=== PATIENT | female | born 1990 ===

== ENCOUNTER 2016-12-02 07:23 | Inpatient (IN) | payer OTHER ==
[~2016-12-02] VITALS: Ht 160 cm; Wt 105.0 kg
[2016-12-02] MEDS ORDERED: ACET50TA PO (07:41)
[2016-12-02] MEDS ORDERED: PRENTAB9 PO (07:41)
[2016-12-02 07:45] VITALS: BP 139/87
--- NOTE | 2016-12-02 09:54 | IPNPDOC ---
Text Note Date of Service The patient was seen on 12/02/16. NOTE [id number] @ 0945 26 yo @ 36+6 by 1st trimester US. Presented to L&D triage with c/o DFM. Denies LOF, VB and CTXs. S: States she is comfortable, but is concerned about the change in her babes movement. States she woke up @ 0200 this am d/t babe moving and it kept her awake all night. This am around 0500 she noted that the babe stopped moving and did not move for 2 hours. Since being on the monitor here in triage she has noted FM. O: VS- WNL, afebrile FHR- BL-150, moderate variability, + accels, intermittent late decels CTX- irregular CTXs, Q 1-5 min, lasting < 60 seconds, resting tone palpated as soft, CTX are not palpable A: 26 yo @ 36+6 with a CAT II FHR tracing and CTXs. P: Prolonged monitoring, IV with LR bolus, Reassess in [address] Stubbs-reviewed FHR tracing. Agrees with above plan of care. WILLARD ADORNO CNM Dec 02, 2016 09:54
[2016-12-02] MEDS ORDERED: LR 1,000 ML IV ONE (10:00)
[2016-12-02] MEDS ORDERED: LACTATED RINGER'S 1000 ML IV STA (12:12)
[2016-12-02] MEDS ORDERED: LR 1,000 ML IV SCH ×2 (12:12→21:53)
[2016-12-02 12:29] LABS: MEAN CORPUSCULAR HEMOGLOBIN 26.2 pg (27.0-33.0); MEAN CORPUSCULAR HGB CONC 33.3 g/dl (32.0-36.5); MEAN CORPUSCULAR VOLUME 78.7 fl (80.0-96.0); RED CELL DISTRIBUTION WIDTH 15.7 % (11.5-14.5); WHITE BLOOD COUNT 9.8 K/mm3 (4.0-10.0)
[2016-12-02 12:59] LABS: ALBUMIN 2.3 GM/DL (3.2-5.2); ALBUMIN/GLOBULIN RATIO 0.55 (1.00-1.93); ALKALINE PHOSPHATASE 89 U/L (45-117); ALT/SGPT 15 U/L (12-78); ANION GAP 15 MEQ/L (8-16); AST/SGOT 38 U/L (15-37); BILIRUBIN,TOTAL 0.6 MG/DL (0.2-1.0); BLOOD UREA NITROGEN 6 MG/DL (7-18); CALCIUM LEVEL 7.9 MG/DL (8.5-10.1); CARBON DIOXIDE LEVEL 16 MEQ/L (21-32); CHLORIDE LEVEL 108 MEQ/L (98-107); CREATININE FOR GFR 0.45 MG/DL (0.55-1.02); GLOMERULAR FILTRATION RATE > 60.0 (>60); GLUCOSE, FASTING 71 MG/DL (70-105); POTASSIUM SERUM 4.4 MEQ/L (3.5-5.1); SODIUM LEVEL 139 MEQ/L (136-145); TOTAL PROTEIN 6.5 GM/DL (6.4-8.2); URIC ACID 3.5 MG/DL (2.6-6.0)
--- NOTE | 2016-12-02 13:03 | HPEPDOC ---
Obstetrical History & Physical General Date of Admission Dec 02, 2016 at 11:25 History of Present Illness 26 yo @ 36+6 by 9 wk US done on [id number] with c/o of feeling like something was off. Stated her babe was moving way more than normal, the movement kept her up all night. Denies DFM, LOF, CTX and VB. GBS unkn. Chief Complaint: Other (pre-term NRFHT) Information Provided By: Patient Age: 26 : 2 Term: 2 Pre-term: 0 Abortions: 0 Livin Care Care: Good Care Number of Visits: 7 Dating Final EDC: December 24, 2016 Final EDC for Daily Update: December 24, 2016 Final EDC by: 1st trimester (US) LMP: Jan 22, 2016 1st Trimester Date: May 21, 2016 Weeks + Days: 9.0 Estimated Date of Confinement: December 24, 2016 EGA at Admission: 36.6 Antepartum Course Diagnos(e)s 1. obesity 2. hypothyroidism 3. CHTN 4. hx GHTN 5. Hx depression/anger issues 6. PCOS 7. hx C-S for NRFHT 8. Rh neg- Rhogam given 10/01/16 9. proteinuria Height (inches): 63 Pre- weight (lbs.): 220 Admission Weight (lbs.): 239 Change in Weight (lbs.): 19 Past Medical History Past Obstetrical History #1: Past Obstetrical History: Multigravida Date of Delivery: Oct 11, 2012 Gestation: 40 Type of Delivery: Spontaneous Vaginal Del. Sex of : Female Weight of Infant (grams): 3713 Complications: No Past Obstetrical History #2: Past Obstetrical History: Multigravida Date of Delivery: Aug 28, 2014 Gestation: 38 Type of Delivery: Ceserean section Sex of Infant: Female Weight of (grams): 3713 Complications: Yes (NRFHT- nuchal cord) [employer] History: Other (PCOS) Past Medical History Medical History 1. hypothyroidism 2. obesity 3. PCOS 4. CHTN with proteinuria Surgical History: section (2014), Tonsilectomy (2009), Gilberts teeth ( 2009) Family History Significant Family History: No pertinent family hx Social History Social history , lives with spouse and 2 daughters Marital Status: Family situation: Spouse/partner home Psychosocial History: Depression, Other (anger issues) * Smoker: non-smoker Alcohol: Denies Drugs: denies Abuse Violence Screening Have you been hit/kicked/slapp: No Have you been sexually assault: No Imunizations Tdap status: current ([id number]) Influenza Status: current ([id number]) Allergies Coded Allergies: Cefazolin (Verified Allergy, Severe, HIVES, 12/02/16) Penicillins (Verified Allergy, Severe, HIVES, 12/02/16) Medications Scheduled Multivitamins/ ( 27-0.8 mg) 1 Tab Tab, 1 TAB PO DAILY Miscellaneous Medications Acetaminophen (Mapap) 500 Mg Tab, 1,000 MG PO Physical Examination Physical Examination GENERAL: A&O x 3 BREAST: . ABDOMEN: Gravid, NTP FETUS: VTX by Russel's HEART RATE: RRR, No m/r/g LUNGS: CCTA EXTREMITIES: No edema. No clonus. DTRs +1 Laboratory Data 24H LABS Laboratory Tests 2 12/02/16 10:15: 12/02/16 11:31: Serology Scanned Report Hepatitis B Testing CBC/BMP Laboratory Tests 12/02/16 10:15 Red Blood Count 4.16, Mean Corpuscular Volume 78.7 L, Mean Corpuscular Hemoglobin 26.2 L, Mean Corpuscular Hemoglobin Concent 33.3, Red Cell Distribution Width 15.7 H Urine Culture: Other (mixed riccardo) Pertinent Laboratoy Data Blood Type: O- RBC Antibody Screen: Negative HIV: Negative Hepatitis B: Negative Hepatitis C: Unknown Rapid Plasma Reagin: Nonreactive Rubella: Immune Varicella: Nonreactive Chlamydia/Gonorrhea: Negative Group B Streptococcus: Unknown Cystic Fibrosis: Negative Glucose Tolerance Test: 98 Anatomy Ultrasound Ultrasound Date: Aug 17, 2016 Placenta Location: Posterior Normal Anatomy: Yes (poor facial views) Placenta Previa: No Estimated Weight (grams): 482 Other Ultrasounds [id number]- normal facial and cardiac; EFW-928 gms, 61% [id number] 2368 grams, 68% Steroid Therapy Steroid Therapy: No Vaginal Examination Presentation: Cephalic presentation Assessment Heart Rate (FHR): 150 Variability: Moderate Accelerations: Positive Decelerations: Late Tocometer Contractions: Yes Frequency: irregular Duration: less than 90 seconds Strength: resting tone palp/soft, other (unable to palpate CTX) Multi-drug resistant Organism: No history of MDRO Assessment/Plan Assessment 26 yo @ 36+6 by 9 wk US done on [id number] with c/o of feeling like something was off. Stated her babe was moving way more than normal, the movement kept her up all night. Denies DFM, LOF, CTX and VB. GBS unkn. CAT II FHR tracing Plan Admit and orient. Unit Support Representative and consent. Diet: NPO GBS unkn IV and labs per protocol LR 1000 ml bolus; then LR @ 125 ml/hr Sessions will counselor manager on options. She is unsure if she wants a TOLAC or RLTCS. WILLARD ADORNO CNM Dec 02, 2016 13:03
[2016-12-02 15:14] VITALS: BP 142/72
[2016-12-02 16:10] VITALS: BP 132/68
[2016-12-02] MEDS ORDERED: LEVO100T5 PO (18:28)
[2016-12-02 18:32] VITALS: BP 119/62
[2016-12-02] MEDS ORDERED: GENTAMICIN SULF INJ 80MG/2ML VIAL (J1580) IP ONE (22:00)
[2016-12-02] MEDS ORDERED: BICITRA 30ML SOLN UDC PO ONE (22:00)
[2016-12-02] MEDS ORDERED: CLINDAMYCIN 900 MG in APPROPRIATE DILUENT 1 EA IV ONE (22:00)
[2016-12-02 22:15] VITALS: BP 132/74
[2016-12-02] MEDS ORDERED: GENTAMICIN 80 MG in APPROPRIATE DILUENT 1 EA IV ONE (22:15)
[2016-12-02 22:25] LABS: MEAN CORPUSCULAR HEMOGLOBIN 27.8 pg (27.0-33.0); MEAN CORPUSCULAR HGB CONC 35.2 g/dl (32.0-36.5); MEAN CORPUSCULAR VOLUME 78.8 fl (80.0-96.0); RED CELL DISTRIBUTION WIDTH 15.8 % (11.5-14.5); WHITE BLOOD COUNT 10.2 K/mm3 (4.0-10.0)
--- NOTE | 2016-12-02 22:26 | IPNPDOC ---
Text Note Date of Service The patient was seen on 12/02/16. NOTE Spoke extensively with this pt and her X3 this afternoon and evening. They have now decided to undergo ERCS + BTL at 37+0 tomorrow AM instead of IOL/ TOLAC despite being an excellent candidate. H&P and chart reviewed. Delivery is due to intermittent late decels noted since first presentation this morning when she came in with decreased/changed FM. NST is mostly Cat 1 with accels and mod genie. Preg is c/b obesity and CHTN and proteinuria and hypothyroidism and rh neg status. Informed consent obtained for ERCS + BTL to be done in the AM. See hard chart. Labs now and plan on clinda/gent IV prior to incision due to all to PCN and Ancef. Sessions VS,Konstantin, I+O VSKonstantin I+O Laboratory Tests 12/02/16 10:15 Red Blood Count 4.16, Mean Corpuscular Volume 78.7 L, Mean Corpuscular Hemoglobin 26.2 L, Mean Corpuscular Hemoglobin Concent 33.3, Red Cell Distribution Width 15.7 H, Calcium Level 7.9 L, Aspartate Amino Transf (AST/SGOT ) 38 H, Alanine Aminotransferase (ALT/SGPT) 15, Lactate Dehydrogenase 318 H, Alkaline Phosphatase 89, Total Bilirubin 0.6, Uric Acid 3.5, Total Protein 6.5, Albumin 2.3 L SESSIONS,RIYA Amador MD Dec 02, 2016 22:26
[2016-12-03] VITALS (9 sets, daily range): BP systolic 114–146; BP diastolic 64–81
[2016-12-03] MEDS ORDERED: NALBUPHINE HCL 10 MG/ML AMP (J2300) IV PRN ×2 (07:52→09:45)
[2016-12-03] MEDS ORDERED: NALOXONE INJ 0.4 MG/1 ML VIAL (J2310) IV PRN ×2 (07:52)
[2016-12-03] MEDS ORDERED: METOCLOPRAMIDE INJ 10MG/2ML VIAL (J2765) IV PRN ×3 (07:52→13:00)
[2016-12-03] MEDS ORDERED: ONDANSETRON 4MG/2ML VIAL (J2405) IV PRN ×2 (07:52→09:45)
[2016-12-03] MEDS ORDERED: MORPHINE PRES-FREE INJ 10 MG/10 ML VIAL (J2274) As Ordered ONE (08:02)
[2016-12-03] MEDS ORDERED: ONDANSETRON 4MG/2ML VIAL (J2405) As Ordered ONE (08:02)
[2016-12-03] MEDS ORDERED: PHENYLephrine HCL 500 MCG/5 ML (100MCG/ML) SYRINGE (J2370) As Ordered ONE ×2 (08:02→08:19)
[2016-12-03] MEDS ORDERED: ePHEDrine SULFATE 25 MG/5 ML(5MG/ML) SYRINGE As Ordered ONE (08:02)
[2016-12-03] MEDS ORDERED: KETOROLAC 60 MG/2 ML VIAL (J1885) As Ordered ONE (08:02)
[2016-12-03] MEDS ORDERED: dexameTHASONE 4 MG/ML 1ML VIAL (J1100) As Ordered ONE (08:02)
[2016-12-03] MEDS ORDERED: OXYTOCIN INJ 10 UNITS/ML VIAL (J2590) As Ordered ONE (08:02)
[2016-12-03] MEDS ORDERED: METOCLOPRAMIDE INJ 10MG/2ML VIAL (J2765) As Ordered ONE (08:02)
[2016-12-03] MEDS ORDERED: LR 1,000 ML IV SCH ×2 (08:58→09:45)
[2016-12-03] MEDS: DOCUSATE SODIUM 100 MG CAP PO SCH ×2 (09:00→20:52)
[2016-12-03] MEDS ORDERED: MEASLES,MUMPS,RUBELLA VACCINE INJ (MMR-II) (90707) SC SCH (09:00)
[2016-12-03] MEDS ORDERED: RHOGAM 300 MCG (1500 IU) INJ (J2790) IM SCH (09:00)
[2016-12-03] MEDS ORDERED: MEPERIDINE INJ 25 MG/ML VIAL (J2175) IV PRN (09:45)
[2016-12-03] MEDS ORDERED: fentaNYL 100 MCG/2 ML INJECTION (J3010) IV PRN (09:45)
[2016-12-03] MEDS ORDERED: diphenhydrAMINE INJ 50MG/ML VIAL (J1200) IV PRN (09:45)
[2016-12-03] MEDS: KETOROLAC 30 MG/ML VIAL (J1885) IV SCH ×2 (14:38→20:53)
--- NOTE | 2016-12-03 23:17 | RO ---
DATE OF PROCEDURE: 12/03/2016 PREPROCEDURE DIAGNOSES: Chronic hypertension, non-reassuring heart tracing , prior delivery, undesired fertility. POSTPROCEDURE DIAGNOSIS: Chronic hypertension, non-reassuring heart tracing, prior delivery, undesired fertility. PROCEDURE: Elective repeat section and bilateral tubal ligation. SURGEON: Dr. Fred Anders FILLETER: Dr. Ramesh Combs ANESTHESIA: Spinal. ESTIMATED BLOOD LOSS: 1000 mL. DRAINS: 150 mL of clear urine in the Anand catheter. 1200 mL of lactated Ringer's replaced. PREOPERATIVE ANTIBIOTICS: Gentamicin and clindamycin. SPECIMENS: None. INDICATION: The patient was admitted to observation yesterday in the morning after a significant change in the movement noted with significant increase overnight and then decreased movement in the morning. Her tracing showed intermittent late decelerations throughout the day with a mostly reassuring tracing otherwise. Because she had chronic hypertension and would be at 37 weeks the following day, counseled to undergo either induction and trial of labor after due to her second delivery being , or an elective repeat delivery. She chose to undergo an elective repeat delivery and bilateral tubal ligation at 37 plus 0. Informed consent was obtained yesterday evening, and we proceeded with the procedure this morning. DESCRIPTION OF PROCEDURE: The patient was taken to the operating room with an IV in place and a spinal anesthetic was easily obtained. She was then laid down in the dorsal supine position with a leftward tilt. Her legs were frogged, a Anand catheter was placed, and she was then prepped and draped in the normal sterile fashion after skin prep was previously done in the room. After testing to ensure an adequate spinal, a Pfannenstiel skin incision was carried down to the layer of the fascia, which was nicked in the midline and extended bilaterally the extent of the skin incision. The rectus muscles were . There was a moderate amount of scar tissue from her prior . An adequate peritoneal window was easily created after a small amount of adhesiolysis was needed. Bladder blade was placed, bladder flap was created, and a low transverse uterine incision was performed without difficulty. Clear fluid noted. Infant's head, which was not engaged, was delivered through the incision, and the shoulders easily followed with fundal pressure. A vigorous infant. Cord was then clamped times two and cut, and the was shown to the parents and taken to the warmer and the resuscitation team. Cord blood was obtained, and the placenta was delivered under traction with fundal massage. Pitocin was running wide open at this point. The uterus was wrapped in a warm sponge, delivered through the abdomen and cleared of all clots and debris with two dry sponges. There was a significant amount of bleeding at the left aspect of the incision, which required several figure-of-8 sutures to obtain hemostasis. There was no hematoma present. A running suture of #0 Vicryl was then used to close the hysterotomy from left to right in a running locked fashion, and #0 Monocryl was used to imbricate. Hemostasis noted. Irrigation behind the uterus was performed. The paracolic gutters were cleared of all clots and debris. The uterus was returned to the abdomen, and the incision was inspected and found to be hemostatic. The peritoneum was closed with a running #2-0 Vicryl from superior to inferior, and the fascia was then closed after the rectus bellies were inspected and found to be hemostatic. Suture used on the fascia was #0 Vicryl in a running stitch from left to right. Copious irrigation in the subcutaneous space was performed, and this said space was made to be hemostatic. Running #2-0 Vicryl closed this space. A subcuticular #4-0 Monocryl was then used from left to right to close the skin. Steri-Strips and a pressure dressing were placed over the skin. The patient's legs were frogged. The uterus was at U-1, firm, and massaged with a bimanual exam and the vagina and cervix were cleared of all clots and debris. The patient was transferred to the post-anesthesia care unit (PACU) in stable condition. All counts were correct, including sponge, needle and instruments. [facility]
[2016-12-04 02:00] VITALS: BP 113/59
[2016-12-04] MEDS: KETOROLAC 30 MG/ML VIAL (J1885) IV SCH ×2 (02:25→08:42)
[2016-12-04 05:51] VITALS: BP 113/71
--- NOTE | 2016-12-04 07:30 | IPNPDOC ---
Text Note Date of Service The patient was seen on 12/04/16. NOTE POD1 CD. No complaints. No V, slight N yest, now resolved. No heavy VB. No CP/LP/SOB. Brst feeding, bonding well. Pain controlled. VSSAF CTAB [employer] CDI bandage removed abd ND, appropr tenderness UO appropr CBC pending a/p: Doing well. LIkely d/c tomorrow. Routine postop care. Sessions VS,Konstantin, I+O VSKonstantin I+O Vital Signs Date Time Temp Pulse Resp B/P (MAP) Pulse Ox O2 Delivery O2 Flow Rate FiO2 12/04/16 05:51 97.0 89 18 113/71 (85) 100 Room Air I&O- Last 24 Hours up to 6 AM 12/04/16 06:00 Intake Total 2448 ml Output Total 3400 ml Balance -952 ml ESTEFANIA,RIYA Amador MD Dec 04, 2016 07:30
[2016-12-04 08:34] LABS: MEAN CORPUSCULAR HGB CONC 34.1 g/dl (32.0-36.5); MEAN CORPUSCULAR VOLUME 79.1 fl (80.0-96.0); WHITE BLOOD COUNT 9.4 K/mm3 (4.0-10.0)
[2016-12-04] MEDS: DOCUSATE SODIUM 100 MG CAP PO SCH ×2 (08:42→21:00)
[2016-12-04] MEDS: PRENATAL VITAMIN TAB PO SCH (09:00)
[2016-12-04] MEDS: LEVOTHYROXINE 0.1 MG TAB (100 MCG) PO SCH (09:17)
[2016-12-04 10:00] VITALS: BP 112/62
[2016-12-04] MEDS: PERCOCET 5MG/325MG TAB PO PRN ×3 (13:25→22:00)
[2016-12-04 14:05] VITALS: BP 124/67
[2016-12-04] MEDS: IBUPROFEN 800 MG TAB PO SCH ×2 (16:33→22:00)
[2016-12-04 18:25] VITALS: BP 140/70
[2016-12-04 22:28] VITALS: BP 125/63
[2016-12-05] MEDS: IBUPROFEN 800 MG TAB PO SCH ×3 (00:40→08:05)
[2016-12-05] MEDS: PERCOCET 5MG/325MG TAB PO PRN ×2 (03:57→08:05)
[2016-12-05] MEDS: LEVOTHYROXINE 0.1 MG TAB (100 MCG) PO SCH (05:59)
[2016-12-05 06:55] VITALS: BP 129/70
[2016-12-05] MEDS: DOCUSATE SODIUM 100 MG CAP PO SCH (08:04)
[2016-12-05] MEDS: PRENATAL VITAMIN TAB PO SCH (08:06)
[2016-12-05] MEDS ORDERED: COLA100C3 PO (10:27)
[2016-12-05] MEDS ORDERED: IBUP-1114 PO (10:27)
[2016-12-05] MEDS ORDERED: OXYC1TAB23 PO (10:28)
--- NOTE | 2016-12-06 10:31 | DSES ---
DATE OF ADMISSION: 12/02/2016 DATE OF DISCHARGE: 12/05/2016 This lady is 26-year-old, 3, now para 3 admitted because of a non-reassuring heart tracing. She had a previous section and she desired permanent sterilization with a repeat section. She had a repeat section and bilateral tubal ligation. She delivered a female , 7 pounds 1 ounce, of nine and ten at 1 and 5 minutes respectfully, 3192 grams. Her risk factors is that she had non-reassuring heart tones, chronic hypertension, polycystic ovary syndrome (PCOS), previous section, hypothyroid, and Rh negative. On her second postoperative day, we discussed phlebitis, cystitis, mastitis, endometritis and cellulitis; diet, exercise and pain management; perineal, breast and wound care. On the rest the examination, she is normocephalic, atraumatic. Neck full range of motion. Pupils equal and reactive to light. Chest is clear bilaterally to bases. Distal pulses are symmetric. No evidence of deep vein thrombosis (DVT), pulmonary embolism (PE) or superficial phlebitis. No back tenderness. Abdomen is soft. Four quadrant bowel sounds are noted. Uterus 2 below. Incision site is clean and dry. No rashes, lesions or pruritus. No arthralgia or myalgia. No complaints of cough, wheezes, shortness of breath or dyspnea on exertion. No chest pain. She is not bleeding. She is neurologic complete. No incontinency or frequency. No nausea, vomiting, diarrhea or constipation. No diabetic issues. Past medical and surgical history and gynecologic history is unremarkable. Family history is noncontributory. She does not smoke, drink or abuse drugs. She is . There is no domestic violence. Her blood pressure is 129/70, respirations 16, pulse 85 and temperature is 97.9. Her admitting hemoglobin was 10.9, hematocrit 32.7 and platelets were 198. Her discharge hemoglobin was 8.8, hematocrit 25.9 and platelets 178. In summary, we have a term gestation, repeat section, tubal ligation for completed fertility, discharged to followup in two weeks' time for incisional check and in six weeks' time for check. Meds were given at discharge.
== END 2016-12-05 12:00 | disposition home or self-care (01) | DRG 765 ==
LOC: M LDO 07:23 → M LDI 11:25 → M OBS 12-03 10:59
PROVIDERS: ADMIT Midwife; ATTEND Obstetrics & Gynecology
PROC: 0UL70DZ Occlusion of Bilateral Fallopian Tubes with Intraluminal Device, Open Approach (ICD-10-PCS; 2016-12-03)
PROC: 10D00Z1 Extraction of Products of Conception, Low, Open Approach (ICD-10-PCS; principal; 2016-12-03 08:10)
DX: O76 Abnormality in fetal heart rate and rhythm complicating labor and delivery (principal); O10.02 Pre-existing essential hypertension complicating childbirth; O99.214 Obesity complicating childbirth; Z3A.36 36 weeks gestation of pregnancy; O99.284 Endocrine, nutritional and metabolic diseases complicating childbirth; O34.211 Maternal care for low transverse scar from previous cesarean delivery; E66.9 Obesity, unspecified; E03.9 Hypothyroidism, unspecified; E28.2 Polycystic ovarian syndrome; O99.344 Other mental disorders complicating childbirth; F32.9 Major depressive disorder, single episode, unspecified; Z88.0 Allergy status to penicillin; Z88.1 Allergy status to other antibiotic agents; Z37.0 Single live birth